=== PATIENT | male | born 1985 | race Caucasian/White ===

== ENCOUNTER 2016-12-24 10:28 | Emergency (ER) | payer OTHER ==
[~2016-12-24] VITALS: Ht 177.8 cm; Wt 90.9 kg
[~2016-12-24 10:28] MED LIST: (None)3.5 GM OP; ACULAR0.5 % OU; AMOXICILLIN500 MG PO; ERYTHROMYCIN BAS1 GM OD; FLEXERIL PO; GENTAMICIN SULF5 ML OP; LORTAB5 PO; NAPROSYN500 MG PO; NO HOME MEDS; PAXIL40 MG OR; PENICILLN VK500 M1 OR; PENICILLN VK500 MG PO; ULTRAM50 M1 PO; ZITHROMAX250 MG OR; no meds
[2016-12-24 12:34] VITALS: BP 146/92
== END 2016-12-24 12:34 | disposition home or self-care (01) | DRG 103 ==
LOC: ED 10:28
DX: G44.209 Tension-type headache, unspecified, not intractable (principal)

== ENCOUNTER 2017-02-11 08:14 | Emergency (ER) | payer OTHER ==
[~2017-02-11] VITALS: Ht 177.8 cm; Wt 95.0 kg
[2017-02-11 09:09] LABS: INFLUENZA A NONE DETECTED (NONE DETECT); INFLUENZA B NONE DETECTED (NONE DETECT)
[2017-02-11] MEDS ORDERED: MUCINEX D1 TAB PO (09:15)
[2017-02-11 09:30] VITALS: BP 135/85
== END 2017-02-11 09:30 | disposition home or self-care (01) | DRG 866 ==
LOC: ED 08:14
PROVIDERS: Emergency Medicine
DX: B34.9 Viral infection, unspecified (principal); F17.210 Nicotine dependence, cigarettes, uncomplicated; R05 Cough; R09.81 Nasal congestion; H92.09 Otalgia, unspecified ear

== ENCOUNTER 2017-11-28 07:01 | Emergency (ER) | payer SELFPAY ==
[~2017-11-28] VITALS: Ht 177.8 cm; Wt 80.2 kg
[~2017-11-28 07:01] MED LIST changes: +MUCINEX D1 TAB PO
[2017-11-28] MEDS ORDERED: AUGMENTIN875TAB PO (07:12)
[2017-11-28] MEDS ORDERED: MOTRIN400 MG PO (07:16)
[2017-11-28 07:22] VITALS: BP 143/86
== END 2017-11-28 07:27 | disposition home or self-care (01) | DRG 159 ==
LOC: ED 07:01
DX: K08.89 Other specified disorders of teeth and supporting structures (principal); F17.210 Nicotine dependence, cigarettes, uncomplicated

== ENCOUNTER 2018-07-27 11:01 | Emergency (ER) | payer BC ==
[~2018-07-27] VITALS: Ht 177.8 cm; Wt 81.0 kg
[~2018-07-27 11:01] MED LIST changes: +AUGMENTIN875TAB PO; +MOTRIN400 MG PO
[2018-07-27 11:41] LABS: INFLUENZA A NONE DETECTED (NONE DETECT); INFLUENZA B NONE DETECTED (NONE DETECT)
[2018-07-27] MEDS ORDERED: AMOXICILLIN875 MG PO (11:49)
[2018-07-27 11:55] VITALS: BP 138/94
== END 2018-07-27 11:55 | disposition home or self-care (01) | DRG 153 ==
LOC: ED 11:01
DX: J02.0 Streptococcal pharyngitis (principal); R05 Cough; F17.210 Nicotine dependence, cigarettes, uncomplicated

== ENCOUNTER 2018-09-10 12:25 | Emergency (ER) | payer BC ==
[~2018-09-10] VITALS: Ht 177.8 cm; Wt 70.0 kg
[~2018-09-10 12:25] MED LIST changes: +AMOXICILLIN875 MG PO
[2018-09-10] MEDS ORDERED: MOTRIN800 MG PO (12:58)
[2018-09-10] MEDS ORDERED: TRAMADOL HCL50 MG PO (12:58)
[2018-09-10] MEDS ORDERED: AMOXICILLIN500 MG PO (12:58)
== END 2018-09-10 13:03 | disposition home or self-care (01) | DRG 159 ==
LOC: ED 12:25
DX: K02.9 Dental caries, unspecified (principal); K04.7 Periapical abscess without sinus; F17.210 Nicotine dependence, cigarettes, uncomplicated

== ENCOUNTER 2019-07-30 08:20 | Emergency (ER) | payer SELFPAY ==
[~2019-07-30] VITALS: Ht 177.8 cm; Wt 90.0 kg
[~2019-07-30 08:20] MED LIST changes: +MOTRIN800 MG PO; +TRAMADOL HCL50 MG PO
[2019-07-30] MEDS ORDERED: AMOXICILLIN500 M2 PO (08:51)
[2019-07-30 09:02] VITALS: BP 141/87
== END 2019-07-30 09:04 | disposition home or self-care (01) | DRG 159 ==
LOC: ED 08:20
DX: K08.89 Other specified disorders of teeth and supporting structures (principal); F17.210 Nicotine dependence, cigarettes, uncomplicated

== ENCOUNTER 2020-05-30 18:45 | Emergency (ER) | payer MEDICAID ==
[~2020-05-30] VITALS: Ht 177.8 cm; Wt 81.8 kg
[~2020-05-30 18:45] MED LIST changes: +AMOXICILLIN500 M2 PO
[2020-05-30 20:31] VITALS: BP 122/69
== END 2020-05-30 20:31 | disposition home or self-care (01) ==
LOC: ED 18:45
DX: B34.9 Viral infection, unspecified (principal); F17.210 Nicotine dependence, cigarettes, uncomplicated; Z20.828 Contact with and (suspected) exposure to other viral communicable diseases

== ENCOUNTER 2020-07-25 04:30 | Emergency (ER) | payer MEDICAID ==
[~2020-07-25] VITALS: Ht 177.8 cm; Wt 81.8 kg
[2020-07-25] MEDS ORDERED: PREDNISONE50 MG PO (04:46)
[2020-07-25] MEDS ORDERED: VISTARIL25 MG PO (04:46)
[2020-07-25 05:46] VITALS: BP 93/50
== END 2020-07-25 06:24 | disposition home or self-care (01) ==
LOC: ED 04:30
DX: L50.9 Urticaria, unspecified (principal); F17.200 Nicotine dependence, unspecified, uncomplicated

== ENCOUNTER 2020-08-06 10:23 | Emergency (ER) | payer MEDICAID ==
[~2020-08-06] VITALS: Ht 177.8 cm; Wt 70.0 kg
[~2020-08-06 10:23] MED LIST changes: +PREDNISONE50 MG PO; +VISTARIL25 MG PO
[2020-08-06] MEDS ORDERED: MOTRIN400 MG/TAB PO (11:33)
[2020-08-06] MEDS ORDERED: CYCLOBENZAPR5 MG PO (11:33)
[2020-08-06 11:40] VITALS: BP 137/68
== END 2020-08-06 11:40 | disposition home or self-care (01) ==
LOC: ED 10:23
DX: M25.512 Pain in left shoulder (principal); F17.200 Nicotine dependence, unspecified, uncomplicated

== ENCOUNTER 2021-04-11 17:19 | Emergency (ER) | payer MEDICAID ==
[~2021-04-11] VITALS: Ht 177.8 cm; Wt 82.0 kg
[~2021-04-11 17:19] MED LIST changes: +CYCLOBENZAPR5 MG PO; +MOTRIN400 MG/TAB PO
[2021-04-11] MEDS ORDERED: BACTROBAN TOP (18:35)
[2021-04-11] MEDS ORDERED: KEFLEX500 MG PO (18:35)
[2021-04-11 18:45] VITALS: BP 121/52
== END 2021-04-11 18:45 | disposition home or self-care (01) ==
LOC: ED 17:19
DX: S61.412A Laceration without foreign body of left hand, initial encounter (principal); F17.210 Nicotine dependence, cigarettes, uncomplicated; W25.XXXA Contact with sharp glass, initial encounter; Y92.009 Unspecified place in unspecified non-institutional (private) residence as the place of occurrence of the external cause

== ENCOUNTER 2024-11-12 15:08 | Emergency (ER) | payer MEDICAID ==
[~2024-11-12] VITALS: Ht 177.8 cm; Wt 89.0 kg
[~2024-11-12 15:08] MED LIST changes: +BACTROBAN TOP; +KEFLEX500 MG PO
[2024-11-12 15:19] VITALS: BP 144/78
[2024-11-12] MEDS ORDERED: KETOROLAC TROMETHAMINE 30 MG/ML SDV IM ONE (15:20)
[2024-11-12 15:31] LABS: BASO% 0.5 % (0-3); EOS% 1.5 % (0-8); HEMATOCRIT 34.9 % (39.0-50.0); HEMOGLOBIN 12.4 g/dl (14.0-18.0); IMMATURE GRANULOCYTES 0.2 % (0.0-5.0); LYMPH% 19.4 % (15-41); MEAN CELL VOLUME 96.4 fL CALC (80.0-100.0); MEAN CORPUSCULAR HGB 34.3 pG CALC (26.0-32.0); MEAN CORPUSCULAR HGB CONC 35.5 g/dL CAL (32.0-36.0); MONO% 7.1 % (2-13); NEUT# 8.14 thou/uL (1.82-7.42); NEUT% 71.3 % (42-76); RED BLOOD COUNT 3.62 mill/uL (4.70-6.10); RED CELL DISTRI WIDTH 15.2 % (11.5-15.5)
[2024-11-12 15:44] VITALS: BP 117/83
[2024-11-12 15:48] LABS: CREATININE 0.9 mg/dL (0.7-1.3); POTASSIUM 4.5 mmol/l (3.5-5.1)
[2024-11-12 16:00] VITALS: BP 117/76
[2024-11-12] MEDS ORDERED: KEFLEX500 MG PO (16:29)
[2024-11-12 16:40] VITALS: BP 117/76
== END 2024-11-12 16:40 | disposition home or self-care (01) ==
LOC: ED 15:08
PROVIDERS: Family Medicine
DX: L03.114 Cellulitis of left upper limb (principal); F17.200 Nicotine dependence, unspecified, uncomplicated